=== PATIENT | female | born 1990 | race Caucasian/White ===

== ENCOUNTER 2020-07-03 10:42 | Outpatient (REF) | payer OTHER, SELFPAY | END 2020-07-03 10:43 | disposition home or self-care (01) | LOC: HO.LAB 10:42 | PROVIDERS: Visit Provider Internal Medicine | DX: Z20.828 Contact with and (suspected) exposure to other viral communicable diseases (principal) | CPT/HCPCS: C9803; U0003 ==

== ENCOUNTER 2023-09-09 09:15 | Emergency (ER) | payer MEDICAID, OTHER, SELFPAY ==
[2023-09-09] VITALS (11 sets, daily range): BP systolic 106–142; BP diastolic 54–84; PULSE 61–90; RESP 15–18; TEMP 36.5–37.1; O2SAT 97–100; BMI 24.5
--- NOTE | ~2023-09-09 | CT_ITS ---
EXAMINATION: CT ABDOMEN AND PELVIS WITH CONTRAST CLINICAL INFORMATION: Lower abdominal pain COMPARISON: None available. TECHNIQUE: Multidetector volumetric images were obtained from the superior aspect of the liver through the pubic symphysis following administration 85 mL of Omnipaque 350 intravenous contrast. Sagittal and coronal reformatted images were obtained on the technologist's workstation. Oral contrast: No This CT examination was performed using dose optimization techniques as appropriate, variously including the following: *Automated exposure control *Adjustment of mA and/or kV according to patient size (this includes techniques or standardized protocols for targeted exams where dose is matched to indication/reason for exam; i.e. extremities or head) *Use of iterative reconstruction technique DLP: 430 mGy-cm FINDINGS: LUNG BASES: The visualized lung bases are unremarkable. LIVER, GALLBLADDER, AND BILIARY TREE: The liver is normal in size, shape, and attenuation. No focal hepatic lesion or biliary ductal dilatation is present. The gallbladder is unremarkable with no evidence of radiopaque gallstones, gallbladder wall thickening, or obvious pericholecystic inflammatory changes. PANCREAS: Unremarkable. SPLEEN: Unremarkable. ADRENAL GLANDS: Unremarkable. KIDNEYS AND URETERS: The kidneys are normal in size, shape, and attenuation. A benign right upper pole 4.0 cm Bosniak class I renal cyst is noted which requires no additional imaging or follow up. No solid renal masses are seen. No hydronephrosis, hydroureter, or calculi seen. No perinephric stranding. BLADDER: Unremarkable. GASTROINTESTINAL TRACT: A large amount of stool is present in the rectum with moderate stool throughout the remainder of the colon The small and large bowel are unremarkable. The appendix is not seen but there is no evidence of appendicitis evidence of appendicitis. ABDOMINAL WALL: No significant hernia is appreciated. LYMPH NODES: No retroperitoneal lymphadenopathy. VASCULAR: The abdominal aorta and IVC appear unremarkable. There is brisk reflux seen in both ovarian veins with pelvic varices present predominantly on the left. PELVIC VISCERA: The uterus and adnexa are unremarkable. OSSEOUS STRUCTURES: Unremarkable. CT/CT abdomen pelvis w IV con IMPRESSION: 1. A definite etiology for the patient's lower abdominal pain has not been found. 2. Large amount of stool in the rectum. 3. Brisk reflux in both ovarian veins with pelvic varices predominantly on the left. This can sometimes be a cause of chronic pelvic pain, especially if exacerbated with the upright position and relieved with the supine position. If the patient has this symptom complex, recommend consultation with IR. 4. Benign Bosniak class I right renal cyst which requires no additional imaging or follow up. Fleischner guidelines were followed.
--- NOTE | ~2023-09-09 | CT_ITS ---
EXAMINATION: CT HEAD WITHOUT CONTRAST CLINICAL INFORMATION: Mechanical fall, Blunt head trauma without loss of consciousness, significant head injury and posttraumatic headache. COMPARISON: None available. TECHNIQUE: Contiguous axial imaging was performed from the skull base to vertex without intravenous administration of contrast. This CT examination was performed using dose optimization techniques as appropriate, variously including the following: *Automated exposure control *Adjustment of mA and/or kV according to patient size (this includes techniques or standardized protocols for targeted exams where dose is matched to indication/reason for exam; i.e. extremities or head) *Use of iterative reconstruction technique DLP: 710 mGy-cm FINDINGS: Ventricles, sulci and cisterns are normal. There is no midline shift, no abnormal intra- or extra- axial fluid accumulation. Pearl and white matter differentiation is normal. Bone window images show no evidence of skull fracture. CT/CT head/brain wo IV con IMPRESSION: 1. Normal CT scan of the brain. 2. No intracranial hemorrhage or skull fracture is seen. 3. No evidence of space occupying lesion could be found. 4. The current plain CT scan of the brain shows no diagnostic evidence of acute cerebral infarction.
--- NOTE | ~2023-09-09 | CT_ITS ---
EXAMINATION: CT CHEST WITHOUT CONTRAST CLINICAL INFORMATION: Left-sided rib pain after fall COMPARISON: None available. TECHNIQUE: Multidetector volumetric CT imaging of the chest was done. Axial MIP volume rendering provided. Sagittal and coronal reformatted images were obtained. This CT examination was performed using dose optimization techniques as appropriate, variously including the following: *Automated exposure control *Adjustment of mA and/or kV according to patient size (this includes techniques or standardized protocols for targeted exams where dose is matched to indication/reason for exam; i.e. extremities or head) *Use of iterative reconstruction technique DLP: 171 mGy-cm FINDINGS: LUNGS: The lungs are clear with no evidence of inflammation or concerning nodules. There is a 3 mm left lower lobe perifissural lymph node present (5:266) there is a subpleural 2 mm right upper lobe posterolateral pulmonary nodule (5:138). No infiltrates or pneumothorax is seen. MEDIASTINUM: The mediastinum is normal. CORONARY ARTERY CALCIFICATION: None visualized on this study. PLEURA: There is no pleural effusion. No pleural mass or thickening. AXILLA: No lymphadenopathy. UPPER ABDOMEN: Unremarkable. Contrast is present in the left renal collecting systems from the previous contrast-enhanced CT abdomen and pelvis. OSSEOUS STRUCTURES: Unremarkable. No rib fractures are seen. CT/CT chest wo IV con IMPRESSION: 1. No evidence of a rib fracture. 2. Incidental note made of a benign 3 mm left lower lobe perifissural lymph node and a non concerning appearing 2 mm right upper lobe pulmonary nodule. Fleischner guidelines do not apply to patients under 35 years of age..
--- NOTE | ~2023-09-09 | CT_ITS ---
EXAMINATION: CT CERVICAL SPINE WITHOUT CONTRAST CLINICAL INFORMATION: Mechanical fall, neck injury and pain COMPARISON: None available. TECHNIQUE: Multiple 2.0 mm axial images were obtained from base of skull to T1 levels without IV contrast enhancement. Sagittal and coronal 2.0 mm bone window images were reconstructed from axial image data. This CT examination was performed using dose optimization techniques as appropriate, variously including the following: *Automated exposure control *Adjustment of mA and/or kV according to patient size (this includes techniques or standardized protocols for targeted exams where dose is matched to indication/reason for exam; i.e. extremities or head) *Use of iterative reconstruction technique DLP: 353 mGy-cm FINDINGS: C1/C2: Bony structures are intact with normal alignment. There is no spinal stenosis. C2/C3: Bony structures are intact with normal alignment. There is no spinal stenosis. Bilateral C2/C3 neuroforamina are patent. Bilateral apophyseal joints are intact with normal alignment. C3/C4: Bony structures are intact with normal alignment. There is no spinal stenosis. Bilateral C3/C4 neuroforamina are patent. Bilateral apophyseal joints are intact with normal alignment. C4/C5: Bony structures are intact with normal alignment. There is no spinal stenosis. Bilateral C4/C5 neuroforamina are patent. Bilateral apophyseal joints are intact with normal alignment. C5/C6: Bony structures are intact with normal alignment. There is no spinal stenosis. Bilateral C5/C6 neuroforamina are patent. Bilateral apophyseal joints are intact with normal alignment. C6/C7: Bony structures are intact with normal alignment. There is no spinal stenosis. Bilateral C6/C7 neuroforamina are patent. Bilateral apophyseal joints are intact with normal alignment. C7/T1: Bony structures are intact with normal alignment. There is no spinal stenosis. Bilateral C7/T1 neuroforamina are patent. Bilateral apophyseal joints are intact with normal alignment. CT/CT cervical spine wo IV con IMPRESSION: No acute fracture or malalignment of the cervical spine.
--- NOTE | 2023-09-09 09:28 | ED_ITS ---
HPI - General Adult General Chief complaint: ETOH/Substance Use Stated complaint: DIZZY,FALL,+LOC,HIT HEAD,BACK PAIN PER EMS Time Seen by Provider: 09/09/23 09:27 Source: patient Mode of arrival: EMS Limitations: altered mental status History of Present Illness HPI narrative: Patient is a 32 yr old female with a past medical history of seizures not currently on anti-seizure medications presenting status post fall with LOC, back pain and dizziness per EMS. Patient reports smoking marijuana from a dispensary prior to the fall. Patients last seizure was 3 years ago. History and ROS limited due to participation by patient frequently answering i dont know Related Data Previous Rx's Medication Instructions Recorded amoxicillin 875 mg-potassium 1 tab PO BID 7 days #14 tabs 09/09/23 clavulanate 125 mg tablet Allergies Allergy/AdvReac Type Severity Reaction Status Date / Time No Known Allergies Allergy Unverified 05/09/20 18:02 Review of Systems 2 Review of Systems: Constitutional : No Weight loss, No Fever, No Chills, No Fatigue, No Malaise ENT/Mouth : No sore throat, No Rhinorrhea Eyes: No Eye Pain, No Swelling, No Redness Cardiovascular : No Chest Pain, No SOB, No Dyspnea on Exertion, No Orthopnea, No Edema, No Palpitations Respiratory : No Cough, No Sputum, No Wheezing Gastrointestinal : + abdominal pain. No Nausea, No Vomiting, No Diarrhea, No Constipation, No Hematochezia, No Melena Genitourinary : No Dysuria, No Urinary Frequency, No Hematuria, Musculoskeletal : + back pain. No joint pain, No Myalgias, No Joint Swelling, + back pain Skin : No Skin Lesions, No rash Neuro : + Dizziness. No Weakness, No Numbness, No Headache Psych : No Anxiety/Panic, No Depression Heme/Lymph: No Bruising, No Bleeding,No Lymphadenopathy Endocrine : No Polyuria, No Polydipsia All other systems reviewed and are negative Yes all other systems are reviewed and are negative [facility] Social History Social History Alcohol intake: never Smoked in Last 30 Days: Yes Use of substances other than those prescribed or required for medical reasons: No Substance Use Type: Marijuana Substance Use Frequency: Daily Last Used Substance: Hours (ago) Advance Directives: No Advance Directives Information Provided: No Healthcare Proxy: No Guardian: No Physical Exam ED Vital Signs: Vital Signs - 24 hr 09/09/23 09:26 09/09/23 09:37 09/09/23 12:15 Temperature Pulse Rate 70 74 63 Respiratory Rate 16 18 18 Blood Pressure 122/73 142/63 H Pulse Oximetry 97 98 Oxygen Delivery Method Room Air Room Air 09/09/23 14:00 09/09/23 15:00 09/09/23 15:05 Temperature Pulse Rate 61 61 Respiratory Rate 18 18 Blood Pressure 123/54 L 125/56 L Pulse Oximetry 97 Oxygen Delivery Method Room Air 09/09/23 15:06 09/09/23 15:08 09/09/23 15:15 Temperature 98.3 F Pulse Rate 77 84 62 Respiratory Rate 16 Blood Pressure 106/64 106/66 106/64 Pulse Oximetry 99 Oxygen Delivery Method Room Air 09/09/23 18:08 09/09/23 23:30 Temperature 98.8 F 97.7 F Pulse Rate 77 64 Respiratory Rate 18 15 Blood Pressure 110/84 125/77 Pulse Oximetry 97 100 Oxygen Delivery Method Room Air Room Air BMI result Body Mass Index 24.5 vss within normal limits Appearance: Alert.? Oriented X3.? No acute distress.?Anxious appearing Head: Normocephalic, atraumatic, no step-offs or deformities Eyes: Pupils dilated with rapid horizontal nystagmus bilaterally. Round and reactive to light.?(on arrival) on multiple revaluations 1300 and 1436 no nystagmus Mouth: Poor dentition, multiple molar teeth missing. 4mm round cyst of the upper left gum. Neck: Normal inspection.? Neck supple.? CVS: Normal heart rate and rhythm.? Pulses normal.? Respiratory: No respiratory distress.? Breath sounds normal.? Abdomen: Moderate tenderness to palpation of LLQ and RLQ. Soft, non distended. Bowel sounds present throughout. Skin: Ecchymosis of the left anterior forearm. Skin warm and dry.? Normal skin color.? Normal skin turgor.? Extremities: No lower extremity edema.? No calf ttp. 5/5 strength to bilateral upper and lower extremities Back: +midline tenderness. Mild tenderness to palpation of the thoracic paraspinal muscle. Severe pain to palpation of the right paraspinal muscles. No C-spine tenderness, full range of motion, no CVA tenderness bilaterally Neuro: Arousable to voice. Oriented X 3.? No motor deficit.? No sensory deficit. CN 2-12 intact . Course Reevaluation(s) Reevaluation #1: CBC unremarkable. Chemistry no acute findings requiring intervention. Normal lactic acid which makes true seizure unlikely. 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 Symptomatic improvement after Versed. Beta hCG negative. Lipase negative. Time: 13:00 Reevaluation #2: Patient reports 10/10 back pain that is sharp. Time: 13:35 Reevaluation #3: Trop, EKG pending. I also ordered a CT chest without contrast to rule out rib fractures. Again no signs of cord compression. However want to rule out rib fractures I did speak to patient she denies any pain at this time she states she is just very anxious, suicidal. She is overwhelmed she is 3 kids at home very young and she feels like she can not care for them. She tells me she lives on the 4th floor and she has not okay. Safety order in place. Charge nurse aware. Patient will need a one-to-one. Care team consult ordered. Time: 14:41 Additional Reevaluation(s): Trop negative, ekg non ischemic. Sign out to Eric Denny pending reval med clearance and psych. Consultations Consultation #1: Patient evaluated by care team consulted who states patient does not need a psych admission and will be left in the pod for gymnastic coach evaluation in the morning for detox. Time: 02:00 Medications Administered Discontinued Medications Generic Name Dose Route Start Last Admin Trade Name Freq PRN Reason Stop Dose Admin Cyclobenzaprine HCl 10 mg 09/09/23 22:20 09/09/23 22:27 Cyclobenzaprine Hcl 10 Mg Tablet PO 09/09/23 22:21 10 mg ONCE ONE Administration Diphenhydramine HCl 50 mg 09/09/23 20:51 09/09/23 20:55 Diphenhydramine Hcl 25 Mg Capsule PO 09/09/23 20:52 50 mg ONCE ONE Administration Sodium Chloride 1,000 mls @ 999 mls/hr 09/09/23 15:30 09/09/23 17:18 Ns IV 09/09/23 16:30 Infused .Q1H1M TRE Infusion Ibuprofen 800 mg 09/09/23 19:33 09/09/23 19:37 Ibuprofen 800 Mg Tablet PO 09/09/23 19:34 800 mg ONCE ONE Administration Iohexol 100 ml 09/09/23 11:56 09/09/23 11:57 Iohexol 350 Mg/Ml 100 Ml Infus..Btl IV 09/09/23 11:57 85 ml ONCE ONE Administration Ketorolac Tromethamine 30 mg 09/09/23 13:42 09/09/23 13:49 Ketorolac Tromethamine 15 Mg/Ml Vial IM 09/09/23 13:43 30 mg ONCE ONE Administration Lidocaine 1 patch 09/09/23 14:39 09/09/23 14:59 Lidocaine 4 % Patch Adh..Patch TRANSDERMA 09/09/23 14:40 1 patch ONCE ONE Administration Protocol Melatonin 6 mg 09/09/23 22:19 09/09/23 22:27 Melatonin 3 Mg Tablet PO 09/09/23 22:20 6 mg ONCE ONE Administration Methadone HCl 20 mg 09/10/23 00:15 09/10/23 00:27 Methadone Hcl 20 Mg/2 Ml Oral.Conc PO 09/10/23 00:16 20 mg ONCE ONE Administration Midazolam HCl 2 mg 09/09/23 09:42 09/09/23 09:48 Midazolam Hcl/Pf 2 Mg/2 Ml Vial IM 09/09/23 09:43 2 mg ONCE ONE Administration Morphine Sulfate 4 mg 09/09/23 14:39 09/09/23 15:00 Morphine Sulfate 4 Mg/Ml Cartridge IVPUSH 09/09/23 14:40 4 mg ONCE ONE Administration Protocol Medical Decision Making Medical Decision Making MDM Narrative: Patient is a 32 yr old female with a past medical history of seizures not currently on anti-seizure medications presenting status post fall with LOC, back pain and dizziness per EMS. Patient reports smoking marijuana from a dispensary prior to the fall. Patients last seizure was 3 years ago. Reports some pain with breathing. Denies fever, chills, SOB, chest pain. PE significant for rapid horizonal nystagmus and dilated pupils bilaterally. + lower quadrant abdominal pain. NIHSS 1 Most likely rib fracture vs spinal fracture vs intracranial hemorrhage vs seizure vs contusions vs pseudo seizure. Unlikely pelvic fracture, intra- abdominal bleed, Will rule out metabolic derangements. Unlikely cauda equina, epidural abscess, cord compression. Unlikely ACS and PE. Plan labs, imaging, EKG Differential Diagnosis Differential Diagnoses: The differential diagnosis associated with the presentation includes Most likely rib fracture vs spinal fracture vs intracranial hemorrhage vs seizure vs contusions vs pseudo seizure. Unlikely pelvic fracture, intra- abdominal bleed, Will rule out metabolic derangements. Unlikely cauda equina, epidural abscess, cord compression. Unlikely ACS and PE. Admission/Observation Consideration of admission/observation: Escalation of care including admission/observation considered Lab Data MDM Lab Attestation statement: I reviewed the patient's lab results. CBC unremarkable CMP unremarkable lactic acid 1.4 UA 09/09/23 11:10 09/09/23 11:10 Labs: Lab Results 09/09/23 09/09/23 09/09/23 Range/Units 11:10 12:15 16:23 WBC 9.7 (4.8-10.8) X10*3/uL RBC 4.49 (4.20-5.50) X10*6/uL Hgb 13.2 (12.0-16.0) g/dl Hct 39.7 (37.0-47.0) % MCV 88.4 (80.0-98.0) fL MCH 29.4 (27.0-33.0) pg MCHC 33.2 (31.0-35.0) g/dl RDW 15.1 (11.0-16.0) % Plt Count 291 (160-400) X10*3/uL MPV 8.7 L (9.4-12.3) fL Immature Gran % (Auto) 0.4 (0.0-0.4) % Neut % (Auto) 69.8 (45-73) % Lymph % (Auto) 24.1 (20-40) % [place] % (Auto) 4.8 (2-11) % Eos % (Auto) 0.5 (0-4) % Baso % (Auto) 0.4 (0-2) % Lymph # (Auto) 2.3 (1.2-4.9) X10*3/uL [place] # (Auto) 0.5 (0.1-1.2) X10*3/uL Eos # (Auto) 0.1 (0.0-0.4) X10*3/uL Baso # (Auto) 0.0 (0.0-0.2) X10*3/uL Abs Immat Gran (auto) 0.04 H (0.00-0.03) X10*3/uL Absolute Neuts (auto) 6.8 (2.0-8.3) x10*3/uL Absolute Nucleated RBC 0.000 (0.0-0.012) X10*3/uL Nucleated RBC % (auto) 0.0 (0.0-0.2) /100WBC Sodium 142 (135-145) mmol/L Potassium 3.9 (3.3-5.1) mmol/L Chloride 108 (96-108) mmol/L Carbon Dioxide 26 (22-29) mmol/L Anion Gap 12 (12-20) BUN 9 (9-16) mg/dL Creatinine 0.70 (0.5-1.4) mg/dL Estim Creat Clear Calc 100.5 Estimated GFR > 60 Random Glucose 103 (60-115) mg/dL Lactic Acid 1.4 (0.5-2.0) mmol/L Calcium 9.8 (8.4-10.2) mg/dL Magnesium 2.2 (1.6-2.6) mg/dL Total Bilirubin 0.4 (0.0-1.0) mg/dL AST 11 (5-31) U/L ALT 8 (0-31) U/L Alkaline Phosphatase 56 (39-117) U/L Troponin I High Sens < 2.7 (<3.5-17.0) ng/L Total Protein 7.3 (6.5-8.0) g/dL Albumin 4.0 (3.5-5.0) g/dL Lipase 37 (8-78) U/L Beta HCG, Quant < 2 mIU/mL Urine Color Yellow Urine Appearance Clear Urine pH 7.0 (5.0-9.0) Ur Specific [place] 1.025 (1.005-1.025) Urine Protein Negative (Neg-Trace) mg/dL Urine Glucose (UA) Negative (Negative) mg/dL Urine Ketones Negative (Negative) mg/dL Urine Blood Negative (Negative) Urine Nitrite Negative (Negative) Ur Leukocyte Esterase Negative (Negative) Urine Opiates Screen POSITIVE H (Not Detect) Urine Fentanyl Screen POSITIVE H (Not Detect) Ur Barbiturates Screen Not Detected (Not Detect) Ur Phencyclidine Scrn Not Detected (Not Detect) Ur Amphetamines Screen Not Detected (Not Detect) U Benzodiazepines Scrn POSITIVE H (Not Detect) Urine Cocaine Screen Not Detected (Not Detect) U Marijuana (THC) Screen POSITIVE H (Not Detect) Ethyl Alcohol < 10 mg/dL Independent Interpretation I performed an independent interpretation of an: EKG (Vent. Rate : 062 BPM Atrial Rate : 062 BPM P-R Int : 140 ms QRS Dur : 082 ms QT Int : 410 ms P-R-T Axes : 057 028 043 degrees QTc Int : 416 ms Normal sinus rhythm Normal ECG No previous ECGs available) and CT Scan Interpretation: EKG Vent. Rate : 062 BPM Atrial Rate : 062 BPM P-R Int : 140 ms QRS Dur : 082 ms QT Int : 410 ms P-R-T Axes : 057 028 043 degrees QTc Int : 416 ms Normal sinus rhythm Normal ECG No previous ECGs available Radiology Impression Discussion of test interpretation with radiology: I have reviewed the radiologist's reading. Radiologist Impression: CT/CT abdomen pelvis w IV con IMPRESSION: 1. A definite etiology for the patient's lower abdominal pain has not been found. 2. Large amount of stool in the rectum. 3. Brisk reflux in both ovarian veins with pelvic varices predominantly on the left. This can sometimes be a cause of chronic pelvic pain, especially if exacerbated with the upright position and relieved with the supine position. If the patient has this symptom complex, recommend consultation with IR. 4. Benign Bosniak class I right renal cyst which requires no additional imaging or follow up. CT/CT head/brain wo IV con IMPRESSION: 1. Normal CT scan of the brain. 2. No intracranial hemorrhage or skull fracture is seen. 3. No evidence of space occupying lesion could be found. 4. The current plain CT scan of the brain shows no diagnostic evidence of acute cerebral infarction. CT/CT cervical spine wo IV con IMPRESSION: No acute fracture or malalignment of the cervical spine. External Record Review External record reviewed: Inpatient record and Outpatient record Critical Care Time Critical Care Time Critical Care Time: Yes Total Critical Care Time: 45 Attestation: I attest to this time spent taking care of the patient, obtaining history, physical, reviewing labs, imaging, speaking to my attending, speaking to specialist. Discharge Plan Discharge Clinical Impression: Fall, Dizziness, Feeling suicidal, Depression, Polysubstance abuse, Pain, dental Patient Disposition: Still a Patient Additional Instructions: Take your medications as prescribed. If you were prescribed antibiotics today, it is important that you take your medication to their entirety, do not skip any doses, do not finish them early. Follow-up with your primary care provider this week. Return to the emergency department with new or worsening symptoms. Such as fevers, chills, chest pain, shortness of breath, nausea, vomiting, dizziness, headache, vision changes, lethargy In case of emergency call 911 Please follow-up with a dentist you can call [phone] Prescriptions: New amoxicillin-pot clavulanate 875-125 mg tablet 1 tab PO BID 7 Days Qty: 14 0RF
--- NOTE | 2023-09-09 09:31 | PC.NURSE ---
Per ems patient had an unwitnessed fall in the bathroom with headstrike. Patient reports to ems that she had loc x 10 minutes. Patient arrived with c collar in place. Patient slow to respond, states hx of seizures with last known seizure 3 years ago. Patient slow to open eyes, side to side twitching of bilat eyes. Pupils dialted
[2023-09-09] MEDS: Midazolam HCl/PF 2 MG/2 ML VIAL IM (09:48)
--- NOTE | 2023-09-09 10:21 | PC.NURSE ---
Seizure pads placed
[2023-09-09 11:14] LABS: MANUAL DIFF FLAG NO
[2023-09-09 11:16] LABS: Basophils Percent Auto 0.4 % (0-2); Eosinophils Absolute Auto 0.1 X10*3/uL (0.0-0.4); Eosinophils Percent Auto 0.5 % (0-4); Hematocrit 39.7 % (37.0-47.0); Hemoglobin 13.2 g/dl (12.0-16.0); Imm Gran Abs Auto 0.04 X10*3/uL (0.00-0.03); Imm Gran Pct Auto 0.4 % (0.0-0.4); Lymphocytes Absolute Auto 2.3 X10*3/uL (1.2-4.9); Lymphocytes Percent Auto 24.1 % (20-40); Mean Corpuscular HGB Conc 33.2 g/dl (31.0-35.0); Mean Corpuscular Hemoglobin 29.4 pg (27.0-33.0); Mean Corpuscular Volume 88.4 fL (80.0-98.0); Mean Platelet Volume 8.7 fL (9.4-12.3); Monocytes Absolute Auto 0.5 X10*3/uL (0.1-1.2); Monocytes Percent Auto 4.8 % (2-11); Neutrophils Absolute Auto 6.8 x10*3/uL (2.0-8.3); Neutrophils Percent Auto 69.8 % (45-73); Platelet Count 291 X10*3/uL (160-400); Red Blood Count 4.49 X10*6/uL (4.20-5.50); Red Cell Distribution Width 15.1 % (11.0-16.0); White Blood Count 9.7 X10*3/uL (4.8-10.8)
[2023-09-09 11:38] LABS: Alanine Aminotransferase 8 U/L (0-31); Alkaline Phosphatase 56 U/L (39-117); Anion Gap 12 (12-20); Aspartate Amino Transferase 11 U/L (5-31); Bilirubin Total 0.4 mg/dL (0.0-1.0); Blood Urea Nitrogen 9 mg/dL (9-16); Calcium 9.8 mg/dL (8.4-10.2); Carbon Dioxide 26 mmol/L (22-29); Chloride 108 mmol/L (96-108); Creatinine Clr Calc Pharmacy 100.5; Estimated Glomerular Filt Rate > 60; Glucose Random 103 mg/dL (60-115); Lipase 37 U/L (8-78); Magnesium 2.2 mg/dL (1.6-2.6); Potassium 3.9 mmol/L (3.3-5.1); Sodium 142 mmol/L (135-145); Total Protein 7.3 g/dL (6.5-8.0)
[2023-09-09 11:39] LABS: HCG Quantitative < 2 mIU/mL
[2023-09-09] MEDS: iohexoL 350 MG/ML 100 ML INFUS..BTL IV (11:57)
[2023-09-09 12:34] LABS: Lactic Acid 1.4 mmol/L (0.5-2.0)
[2023-09-09 12:40] LABS: Appearance Urine Clear; Color Urine Yellow; Glucose Urine UA Negative (Negative); Leukocyte Esterase Urine Negative (Negative); Nitrite Urine Negative (Negative); Specific Gravity - Urine 1.025 (1.005-1.025); Urine Blood Negative (Negative); Urine Ketones Negative (Negative); Urine Protein Negative (Neg-Trace)
[2023-09-09] MEDS: Ketorolac Tromethamine 15 MG/ML VIAL 30 MG IM (13:49)
--- NOTE | 2023-09-09 14:37 | ECG_ITS ---
Test Reason : seizure Blood Pressure : / mmHG Vent. Rate : 062 BPM Atrial Rate : 062 BPM P-R Int : 140 ms QRS Dur : 082 ms QT Int : 410 ms P-R-T Axes : 057 028 043 degrees QTc Int : 416 ms Normal sinus rhythm Normal ECG No previous ECGs available Referred By: Jamal Alaniz Electronically Signed By:HANY DENNY
[2023-09-09] MEDS: Lidocaine 4 % Patch ADH..PATCH 1 PATCH TRANSDERMA (14:59)
[2023-09-09] MEDS: Morphine Sulfate 4 MG/ML CARTRIDGE IVPUSH (15:00)
[2023-09-09 15:05] LABS: Troponin-I High Sensitivity < 2.7 ng/L (<3.5-17.0)
--- NOTE | 2023-09-09 15:15 | MHC.EDTECH ---
Rn informed this pct that pt made SI statements. Pt changed over to appropriate clothing with security and another pct. Belongings secured in locker #8 in pod. When standing pt states she gets extremely weak and needs assistance to be kept standing. Rn aware.
--- NOTE | 2023-09-09 15:26 | PC.NURSE ---
Patient made SI statements to provider, placed on 1:1, changed over into hospital attire and belongings locked in POD.
[2023-09-09] MEDS: 0.9 % Sodium Chloride 1,000 ML 999 ML IV (15:34)
[2023-09-09 15:59] LABS: Ethanol < 10 mg/dL
[2023-09-09 16:35] LABS: Amphetamine Screen Urine Not Detected (Not Detect); Barbiturates, Urine Not Detected (Not Detect); Benzodiazepines Screen Urine POSITIVE (Not Detect); Cannabinoid Screen Urine POSITIVE (Not Detect); Cocaine Screen Urine Not Detected (Not Detect); Fentanyl, urine POSITIVE (Not Detect); Opiate Screen Urine POSITIVE (Not Detect); Phencyclidine Screen Urine Not Detected (Not Detect)
--- NOTE | 2023-09-09 18:08 | PC.NURSE ---
Remains with 1:[address], plan is to transfer to pod after results of CT scan return. Denis called stating CT is next to read on their list
--- NOTE | 2023-09-09 18:42 | PC.NURSE ---
Rpeort given to POD RN
[2023-09-09] MEDS: Ibuprofen 800 MG TABLET PO (19:37)
--- NOTE | 2023-09-09 19:49 | PC.NURSE ---
patient upon arrival to shift t/w noted client being seen by care team, client also requested analgesic for reported back pain patient soon thereafter received ibuprofen for this. patient maintains safe behavior appears in no distress.
--- NOTE | 2023-09-09 20:32 | MHC.CARE ---
CARE Team evaluation complete. Pt will be referred to [facility] and to [facility] [facility]'s recovery team for MAT/Detox treatment options. Will spend the night in the POD. POD RN, ED provider and Pt are aware.
[2023-09-09] MEDS: diphenhydrAMINE HCL 25 MG CAPSULE 50 MG PO (20:55)
[2023-09-09] MEDS: Cyclobenzaprine HCl 10 MG TABLET PO (22:27)
[2023-09-09] MEDS: Melatonin 3 MG TABLET 6 MG PO (22:27)
--- NOTE | 2023-09-09 22:40 | MHC.CARE ---
Faxed referral to [facility] and called to activate referral. Hernandez reports [facility] will contact CARE Team for update on status.
--- NOTE | 2023-09-10 00:20 | PC.NURSE ---
after assessing client symptoms, patient was exhibiting varied opiate wd sx including anxiety, restlessness, mild piloerection client stated last use percocet 3d ago however urine tests indicate other substance use, t/w pursued methadone to reduce ows.
[2023-09-10] MEDS: methADONE HCl 20 MG/2 ML ORAL.CONC PO (00:27)
--- NOTE | 2023-09-10 07:00 | PC.NURSE ---
patient currently sleeping, respirations even/non labored
[2023-09-10 10:04] VITALS: BP 108/62; PULSE 63; RESP 15; TEMP 36.8; O2SAT 99
--- NOTE | 2023-09-10 11:02 | MHC.RECOVRN ---
Met with pt in 6 after pt expressed interest in MOUD/ATS. Pt had presented to the hospital after feeling dizzy and falling at home. During evaluation, pt endorsed SI, subsequently met and cleared by CARE Team. Pt laying in bed, eyes closed, wakes to voice, engages in conversation. Pt reports 4 Percocet daily x 4-6 months, [place], denies other substances. Pt reports she had been on Suboxone in the past (Sep 2022 per [facility] x 4 weeks), however, did not continue due to losing prescription. Pt reports current withdrawal symptoms including body aches, diaphoresis, anxiety, and restlessness. Pt received 20 mg methadone overnight with positive effect, is interested in additional dose. Discussed continuation of MOUD, pt reports going to an [facility]TP daily might be difficult. Pt interested in Suboxone, discussed different induction methods. Pt would like to receive additional methadone at this time and pursue ATS. Pt is only agreeable to [facility]. Referral sent to [facility]. Plan to administer 10 mg methadone. Discussed with ED provider.
--- NOTE | 2023-09-10 11:26 | PC.NURSE ---
pt states she is not on home medications- med red complete. no distress. no si/hi
[2023-09-10] MEDS: methADONE HCl 20 MG/2 ML ORAL.CONC 10 MG PO (11:31)
--- NOTE | 2023-09-10 13:27 | MHC.RECOVRN ---
Met with pt to follow up and inform her [facility] does not have bed availability today. Discussed MOUD options. Pt is interested in initiating Suboxone at home. Educated pt on appropriate induction method as well as precipitated withdrawal, pt verbalizes understanding. Discussed with Azalia Crane APRN. Plan to send rx to pharmacy, pt to initiate when in withdrawal and present as walk in to [facility] on Wednesday. ED provider aware. Will be transported home via [employer]. Pt denies questions or concerns.
--- NOTE | 2023-09-10 14:09 | PC.NURSE ---
given take home narcan and instructed on use- understands. pt declined interpreterer. no distress. no iv. vss.
[2023-09-10 14:10] VITALS: BP 106/65; PULSE 68; RESP 16; O2SAT 98
== END 2023-09-10 14:09 | disposition home or self-care (01) ==
PROVIDERS: Physician Assistant; Emergency Provider Emergency Medicine
DX: S09.90XA Unspecified injury of head, initial encounter (principal); R42 Dizziness and giddiness; F33.1 Major depressive disorder, recurrent, moderate; R45.851 Suicidal ideations; R56.9 Unspecified convulsions; F12.10 Cannabis abuse, uncomplicated; M54.2 Cervicalgia; M54.6 Pain in thoracic spine; R51.9 Headache, unspecified; R07.81 Pleurodynia; K08.89 Other specified disorders of teeth and supporting structures; Y99.8 Other external cause status; W01.0XXA Fall on same level from slipping, tripping and stumbling without subsequent striking against object, initial encounter; Y93.9 Activity, unspecified; Y92.9 Unspecified place or not applicable; Z79.899 Other long term (current) drug therapy
CPT/HCPCS: 36415; 70450; 71250; 72125; 74177; 80053; 80307; 81003; 83605; 83690; 83735; 84484; 84702; 85025; 93005; 96361; 96372; 96374; 99285; J1885; J2250; J2270; Q9967; S9485

== ENCOUNTER → 2023-09-09 14:37 | Outpatient (BNV) | payer MEDICAID, SELFPAY | PROVIDERS: Emergency Provider Emergency Medicine; Visit Provider Internal Medicine | DX: G40.89 Other seizures (principal) | CPT/HCPCS: 93010 ==